=== PATIENT | male | born 1985 | race Two or more races ===

== ENCOUNTER 2024-04-02 08:13 | Emergency (ER) | payer MEDICAID ==
[~2024-04-02] VITALS: Ht 190.5 cm; Wt 107.0 kg
[2024-04-02 08:23] VITALS: BP 121/74; PULSE 109; RESP 20; TEMP 98.2; O2SAT 96
== END 2024-04-02 15:22 | disposition left against medical advice (07) ==
LOC: ER 08:13
DX: H92.01 Otalgia, right ear (principal); Z53.21 Procedure and treatment not carried out due to patient leaving prior to being seen by health care provider